=== PATIENT | male | born 1990 | race Caucasian/White ===

== ENCOUNTER 2018-03-16 09:26 | Emergency (ER) | payer OTHER ==
[~2018-03-16] VITALS: Ht 182.9 cm; Wt 96.2 kg
[2018-03-16 09:45] VITALS: BP 155/104
[2018-03-16 10:00] LABS: BASOPHIL % 0.4 % (0.0-0.2); EOSINOPHIL # 0.2 10^3/uL (0.0-0.2); EOSINOPHIL % 1.5 % (0.0-5.0); HEMOGLOBIN 15.4 g/dL (13.9-16.3); LYMPHOCYTES # 1.4 10^3/uL (1.0-4.8); LYMPHOCYTES % 14.5 % (24.0-44.0); MEAN CELL HGB 28.8 pg (26-34); MEAN CORP VOLUME 87.3 fL (78-100); MEAN PLATELET VOLUME 10.5 fL (7.8-11.0); MONOCYTES # 1.1 10^3/uL (0.3-0.8); MONOCYTES % 11.6 % (5.0-12.0); NEUTROPHIL # 7.1 10^3/uL (1.8-7.7); NEUTROPHILS % 71.8 % (41.0-85.0); RED CELL DISTRIBUTION WIDTH 13.2 % (11.5-14.5); WHITE BLOOD CELL 9.9 10^3/uL (4.5-11.0)
--- NOTE | 2018-03-16 10:06 | DIREP ---
PROCEDURE:XRAY ELBOW [id number] COMPARISON:None. INDICATIONS:bursitis FINDINGS: BONES:Normal. JOINTS:Normal. No displaced anterior or posterior fat pads. SOFT TISSUES:Subcutaneous edematous changes over the medial and posterior elbow. OTHER:Normal. CONCLUSION:No osseous abnormalities. Subcutaneous edematous changes in the medial and posterior elbow. Dictated by: Humberto Benavides M.D. on 03/16/2018 at 10:04 AM
[2018-03-16 10:17] LABS: CALCIUM 9.4 mg/dL (8.4-10.5); CARBON DIOXIDE 25.7 mmol/L (20.0-32)
--- NOTE | 2018-03-16 10:50 | NUR ---
VITALS PT DOES NOT WANT TO WEAR BLOOD PRESSURE CUFF AND PULSE OX ANY LONGER.
[2018-03-16] MEDS ORDERED: KENALOG-40 IM ONE (11:00)
[2018-03-16] MEDS ORDERED: TORADOL IM ONE (11:00)
--- NOTE | 2018-03-16 11:06 | ER.PDOC ---
General Chief Complaint: Extremities Stated Complaint: WOUND CARE Time seen by MD: 11:11 Source: patient Exam Limitations: no limitations History of Present Illness Occurred: yesterday, last week Where: home Severity: moderate Modifying Factors: pain on movement Allergies: Coded Allergies: No Known Allergies (Unverified , 03/16/18) Past Medical History Medical History: no pertinent history Surgical History: no surgical history Social History Smoking: non-smoker Alcohol Use: none Drug Use: none Reviewed Nursing Reviewed: Vital Signs, Abn. Noted Review of Systems All Other Systems: Reviewed and Negative Physical Exam General Appearance: Alert, No Apparent Distress Hand: nml inspection, non-tender Forearm/Elbow: see diagram, tenderness, swelling, ecchymosis, limited ROM by pain Arm/Shoulder: nml inspection, non-tender, nml ROM 1 - swelling , small effusion Neuro/Vasc/Tendon: sensation nml, motor nml, no vascular compromise, tendon function nml Skin: warm/dry Head/ENT: nml inspection, pharynx nml Neck/Back: nml inspection, non-tender Respiratory: chest non-tender, breath sounds nml CVS: heart sounds normal Abdomen: non-tender, no organomegaly Results/Orders Results/Orders Laboratory Tests Test 03/16/18 10:00 White Blood Count 9.9 10^3/uL (4.5-11.0) Red Blood Count 5.35 10^6/uL (4.50-5.90) Hemoglobin 15.4 g/dL (13.9-16.3) Hematocrit 46.7 % (37.0-53.0) Mean Corpuscular Volume 87.3 fL (78-100) Mean Corpuscular Hemoglobin 28.8 pg (26-34) Mean Corpuscular Hemoglobin Concent 33.0 g/dL (33-37) Red Cell Distribution Width 13.2 % (11.5-14.5) Platelet Count 202 10^3/uL (150-400) Mean Platelet Volume 10.5 fL (7.8-11.0) Neutrophils (%) (Auto) 71.8 % (41.0-85.0) Lymphocytes (%) (Auto) 14.5 % (24.0-44.0) Monocytes (%) (Auto) 11.6 % (5.0-12.0) Neutrophils # (Auto) 7.1 10^3/uL (1.8-7.7) Lymphocytes # (Auto) 1.4 10^3/uL (1.0-4.8) Monocytes # (Auto) 1.1 10^3/uL (0.3-0.8) Absolute Immature Granulocyte (auto 0.02 10^3 u/L (0-2) Eosinophils % 1.5 % (0.0-5.0) Basophils % 0.4 % (0.0-0.2) Basophils # 0.0 10^3/uL (0.0-0.1) Erythrocyte Sedimentation Rate Pending Eosinophil Count 0.2 10^3/uL (0.0-0.2) Sodium Level 141 mmol/L (132-145) Potassium Level 4.4 mmol/L (3.6-5.2) Chloride Level 105.0 mmol/L (96-109) Carbon Dioxide Level 25.7 mmol/L (20.0-32) Anion Gap 14.7 Blood Urea Nitrogen 9 mg/dL (7-18) Creatinine 1.02 mg/dL (0.59-1.40) Estimated GFR () 104.5 (>/=60) BUN/Creatinine Ratio 8.0 Glucose Level 93 mg/dL (70-110) Calcium Level 9.4 mg/dL (8.4-10.5) Total Bilirubin 0.5 mg/dL (0.2-1.0) Aspartate Amino Transf (AST/SGOT) 54 U/L (0-35) Alanine Aminotransferase (ALT/SGPT) 148 U/L (12-78) Alkaline Phosphatase 89 U/L (50-136) C-Reactive Protein 6.06 mg/dL (0.00-5.00) Total Protein 8.4 g/dL (6.4-8.2) Albumin 4.1 g/dL (3.4-5.0) Globulin 4.3 Percent Immature Gran (Cell Imm) 0.20 % (0.00-0.50) Departure Time of Disposition: 11:33 Disposition: 01 HOME, SELF-CARE Impression: Primary Impression: Olecranon bursitis of left elbow Condition: Stable Referrals: PCP,UNKNOWN (PCP) PRIMARY CARE PROVIDER Duration or Time Spent with Pa: 1 hr ANGELICA COBB MD March 16, 2018 11:06
[2018-03-16] MEDS ORDERED: TORADOL ONE (11:16)
[2018-03-16] MEDS ORDERED: KENALOG-40 ONE (11:17)
--- NOTE | 2018-03-16 11:26 | NUR ---
TDAP BOOST[employer] LOT:[id number] EXP:07/05/20
[2018-03-16] MEDS ORDERED: BOOSTRIX VACCINE SYRINGE IM ONE (11:30)
[2018-03-16] MEDS ORDERED: TRIPLE ANTIBIOTIC OINTMENT TP ONE (11:43)
[2018-03-16 12:14] VITALS: BP 155/104
== END 2018-03-16 11:41 | disposition home or self-care (01) ==
LOC: ER 09:26
DX: M70.22 Olecranon bursitis, left elbow (principal); Y93.89 Activity, other specified
CPT/HCPCS: 36415; 73070; 80053; 85025; 85651; 86140; 87040 ×2; 90471; 96372 ×2; 99285; J1885; J3301